=== PATIENT | female | born 1990 | race African-American/Black ===

== ENCOUNTER 2017-12-03 07:11 | Emergency (ER) | payer MEDICAID ==
[~2017-12-03] VITALS: Ht 157.5 cm; Wt 74.0 kg
[2017-12-03 07:25] VITALS: BP 183/143
[2017-12-03] MEDS ORDERED: VISCOUS LIDOCAINE 2% 15 ML UDC MM STA (07:53)
== END 2017-12-03 09:31 | disposition home or self-care (01) ==
LOC: ER 07:47
DX: O26.891 Other specified pregnancy related conditions, first trimester (principal); K62.89 Other specified diseases of anus and rectum; R56.9 Unspecified convulsions; O16.1 Unspecified maternal hypertension, first trimester; Z3A.09 9 weeks gestation of pregnancy; Z88.0 Allergy status to penicillin; Z91.010 Allergy to peanuts
CPT/HCPCS: 99282

== ENCOUNTER 2018-05-02 13:28 | Observation (INO) | payer MEDICAID ==
[~2018-05-02] VITALS: Ht 157.5 cm; Wt 74.8 kg
[2018-05-02] MEDS ORDERED: PREN-142 PO (13:59)
[2018-05-02] MEDS ORDERED: CALC-1042 MT (13:59)
[2018-05-02 14:13] LABS: CLARITY URINE CLEAR (CLEAR); COLOR URINE DARK YELLOW (YELLOW); KETONES URINE 2+ (NEGATIVE); LEUKOCYTE ESTERASE URINE TRACE (NEGATIVE); NITRITE URINE NEGATIVE (NEGATIVE); OCCULT BLOOD URINE NEGATIVE (NEGATIVE); PH URINE 7.5 (4.5-8.0); PROTEIN URINE 2+ (NEGATIVE); SPECIFIC GRAVITY URINE 1.019 (1.005-1.030)
== END 2018-05-02 14:05 | disposition left against medical advice (07) ==
LOC: L&D 13:28
PROVIDERS: ADMIT Obstetrics & Gynecology; ATTEND Obstetrics & Gynecology
DX: O26.892 Other specified pregnancy related conditions, second trimester (principal); R10.9 Unspecified abdominal pain; R30.0 Dysuria; Z3A.27 27 weeks gestation of pregnancy
CPT/HCPCS: 81003; 99281; G0378; J7120; 96360